=== PATIENT | male | born 1935 | race Caucasian/White ===

== ENCOUNTER 2016-10-05 17:50 | Inpatient (IN) | payer MEDICARE ==
[~2016-10-05] VITALS: Ht 175.3 cm; Wt 73.0 kg
--- NOTE | ~2016-10-05 | DS ---
PATIENT'S NAME: KOLBY RANGEL [facility] AGE: 80 Y [address] ROOM: [place] [address] LOCATION: GPCU ADMIT DATE: 10/05/2016 Discharge Summary DISCHARGE DATE: 10/08/2016 FAMILY PHYSICIAN: Physician, Unknown ATTENDING PHYSICIAN: Hao Cristobal PRIMARY DIAGNOSES: 1. Acute upper gastrointestinal bleed. 2. Duodenal ulcer. 3. Acute blood loss anemia. 4. Acute kidney injury, prerenal etiology. 5. Diabetes mellitus type 2. 6. Elevated troponin. 7. Coronary artery disease. 8. Chronic atrial fibrillation, status post Watchman procedure. 9. Essential hypertension. 10. Benign prostatic hypertrophy. OPERATIONS AND PROCEDURES: EGD was performed by Dr. Dye on 10/06/2016 demonstrating duodenal bulb ulcerations. Hemostatic clips were applied. HISTORY OF PRESENTING ILLNESS/REASON FOR ADMISSION: Please refer to the H and P dictated on 10/05/2016. HOSPITAL COURSE: The patient was admitted to hospital as noted above with a presumptive diagnosis of acute upper GI bleeding. He received aggressive supportive care and close clinical monitoring. Gastroenterology was consulted. EGD was recommended and carried out as described above. Hemoclips were applied without any residual bleeding. His hemoglobin was monitored. He did receive a single unit PRBC transfusion on 10/06/2016. His hemoglobin remained relatively stable, increasing from 7.9 to 8.9. His hemoglobin was 8.5 on the date of discharge. He remained hemodynamically stable over the course of his hospital stay. Perez catheter was pulled on 10/07/2016. He was voiding with only mild urinary hesitancy. It was suggested to follow up with Urology on an outpatient basis. By the end of the 4th day of his hospital stay, it was felt he would be stable enough for discharge to home on PPI therapy and plans for close clinical followup with his primary care provider as well as outpatient followup with Gastroenterology. DISCHARGE INSTRUCTIONS: PATIENT'S NAME: KOLBY RANGEL [facility] AGE: 80 Y [address] ROOM: [place] [address] LOCATION: GPCU ADMIT DATE: 10/05/2016 Discharge Summary DISCHARGE DATE: 10/08/2016 FAMILY PHYSICIAN: Physician, Unknown ATTENDING PHYSICIAN: Hao Cristobal DIET: Cardiac prudent as tolerated. ACTIVITY: As tolerated. MEDICATIONS: 1. Protonix 40 mg p.o. b.i.d. 2. Allopurinol 300 mg p.o. daily. 3. Aspirin 81 mg p.o. daily. 4. Citalopram 40 mg p.o. daily. 5. Lasix 40 mg p.o. daily. 6. Insulin detemir 8 units subcu b.i.d. 7. Actos 15 mg p.o. q.h.s. 8. Simvastatin 20 mg p.o. q.h.s. 9. Acetaminophen 500 mg p.o. q.4 hours p.r.n. pain or fever. 10. Magnesium oxide 400 mg p.o. b.i.d. 11. Glipizide 10 mg p.o. b.i.d. 12. Carvedilol 6.25 mg p.o. b.i.d. 13. Multivitamin daily. 14. Ascorbic acid 1000 mg p.o. q.h.s. 15. Carafate 1 g p.o. b.i.d. FOLLOWUP: He will follow up with his primary care provider, Dr. Otoole, in [place] in 5 to 7 days. He will follow up with Dr. Bennett, Gastroenterology, in 6 weeks for repeat EGD. CONDITION ON DISCHARGE: Fair. TIME SPENT: Total time spent on discharge process 45 minutes. MD ASIA RINALDI/nayan /[id number] d: 10/09/16 0343 t: 10/12/16 0833, DISCHARGE SUMMARY
--- NOTE | ~2016-10-05 | CON ---
PATIENT'S NAME: KOLBY RANGEL [facility] AGE: 80 Y [address] ROOM: [place] [address] LOCATION: GPCU ADMIT DATE: 10/05/2016 Consultation DISCHARGE DATE: FAMILY PHYSICIAN: PHYSICIAN, UNKNOWN ATTENDING PHYSICIAN: DANIA BIGGS REFERRING PHYSICIAN: ANJELICA MANNING MD GASTROENTEROLOGY CONSULTATION HISTORY OF PRESENT ILLNESS: This is an 80-year-old male who was seen in consultation for evaluation of melenic stools. The patient was admitted through the emergency room yesterday with a history of vomiting blood and also passing several episodes of melenic stools on same day in the morning. He has been on anticoagulation for a five- vessel CABG, atrial fibrillation, status post Watchman procedure. The anticoagulant was stopped earlier, and now he is only on aspirin. He has a history of stroke and congestive heart failure, and decompensated with congestive heart failure on arrival, therefore, fluids were given very carefully. On admission, he was tachycardic, but at the time of my evaluation, he was very comfortable in bed. His pulse rate was hovering between 80 and 90. PAST MEDICAL HISTORY: 1. Coronary artery disease with five-vessel CABG. 2. History of CVA. 3. Type 2 diabetes mellitus. 4. Hypertension. 5. Atrial fibrillation, post Watchman procedure. 6. Benign prostatic hypertrophy. 7. Passing melenic stools, but no apparent history of overt GI bleeding in the past. MEDICATIONS: As per MAR. They were reconciled. FAMILY HISTORY: Coronary artery disease. SOCIAL HISTORY: He is a former smoker. However, does not drink or smoke at present. REVIEW OF SYSTEMS: A 10-point review of system is negative other than mentioned above. PHYSICAL EXAMINATION: GENERAL: Reveals a well-developed male, who is not in acute discomfort. VITAL SIGNS: Blood pressure is 140/74, pulse is 92 per minute, respirations 20 PATIENT'S NAME: KOLBY RANGEL [facility] AGE: 80 Y [address] ROOM: [address] [address] LOCATION: GPCU ADMIT DATE: 10/05/2016 Consultation DISCHARGE DATE: FAMILY PHYSICIAN: PHYSICIAN, UNKNOWN ATTENDING PHYSICIAN: KHALID,NAJERA A per minute, and temperature is 98.7 degrees Fahrenheit. Weight is 73 kg. HEAD: Normocephalic and atraumatic. NECK: Supple. No lymphadenopathy. JVP is mildly engorged. CHEST: Clear to palpation, percussion, and auscultation except in the bases which have few crepitations. CARDIAC: Reveals S1 and S2 normal. However, he has irregular heart rate. There are no rubs or added heart sounds. GASTROINTESTINAL: Abdomen in the scaphoid is nontender. There is no hepatosplenomegaly. There is no ascites. GENITOURINARY: Bladder is not full. Hypogastrium is not tender. MUSCULOSKELETAL: Moves all extremities without any restricted joint disease. NEUROLOGICAL: Negative for cranial nerves evaluation, and there was no lateralization. LABORATORY DATA: Shows his hemoglobin is 8.5 g, dropped from 9.8 g on admission. WBC count is 10.5, and platelets are 115,000. Sodium is 141, potassium of 3.7, chloride 1.2, CO2 of 20, glucose 158, calcium 7.8, BUN is 52, and creatinine 1.5. Troponin I is 0.299, and proBNP is 1428. Hemoglobin A1c is 68. ASSESSMENT AND PLAN: Mr. Rangel is an 80-year-old gentleman who had a history of coronary artery bypass grafting in the past, is on aspirin and admitted with melenic stools and vomiting blood. He needs to be further evaluated by upper gastrointestinal endoscopy for evaluation of source of bleeding and treatment. We will go ahead and schedule him for esophagogastroduodenoscopy and proceed appropriately. He has been stabilized in terms of his resuscitation for fluid and electrolytes are concerned, and hemoglobin is stable. He has not had any further melenic stools while in the hospital. We appreciate sharing care of this patient. MD FELISHA CHURCH/nayan /[id number] d: t: 10/07/16 1039, CONSULTATION REPORT
--- NOTE | ~2016-10-05 | HP ---
PATIENT'S NAME: KOLBY RANGEL [facility] AGE: 80 Y [address] ROOM: [place] [address] LOCATION: GPCU ADMIT DATE: 10/05/2016 History & Physical DISCHARGE DATE: FAMILY PHYSICIAN: PHYSICIAN, UNKNOWN ATTENDING PHYSICIAN: DANIA BIGGS DATE OF SERVICE: CHIEF COMPLAINT: Vomiting blood as well as dark tarry stools. HISTORY OF PRESENT ILLNESS: An 80-year-old gentleman with a past medical history significant for coronary artery disease, status post 5-vessel CABG; atrial fibrillation, status post watchman procedure, not on any oral anticoagulation; history of stroke; congestive heart failure, currently compensated, was at home yesterday when he started having bloody emesis multiple times as well as dark tarry stools associated with one episode of chills. He also had abdominal pain which was located in the left upper quadrant associated with it. On further inquire, he said he does not have any headache but does have dizziness and feeling thirsty. He does not complain of any chest pain, any shortness of breath, or constipation. He endorses that he had a prostate procedure done by Dr. Morley 3 weeks ago and he is having difficulty urinating as well. He does not complain of any swelling in legs. Further, he denied any PND, orthopnea, or leg swelling. REVIEW OF SYSTEMS: All other systems reviewed and were negative except what is mentioned in the HPI. PAST MEDICAL HISTORY: 1. Coronary artery disease, status post 5-vessel CABG. 2. Atrial fibrillation status post Watchman procedure. 3. History of CVA. 4. Type 2 diabetes mellitus. 5. Hypertension, essential. 6. Benign prostatic hypertrophy. MEDICATIONS: Medications are being reconciled right now. FAMILY HISTORY: Significant for coronary artery disease in mom as well as dad. SOCIAL HISTORY: PATIENT'S NAME: KOLBY RANGEL [facility] AGE: 80 Y [address] ROOM: [place] [address] LOCATION: GPCU ADMIT DATE: 10/05/2016 History & Physical DISCHARGE DATE: FAMILY PHYSICIAN: PHYSICIAN, UNKNOWN ATTENDING PHYSICIAN: DANIA BIGGS Quit smoking long time ago. No alcohol or drug abuse. Lives with his at home. PHYSICAL EXAMINATION: VITAL SIGNS: Blood pressure is 166/76, 110, afebrile, 17. GENERAL: No acute distress. Alert and oriented x3. HEENT: Head: Atraumatic, normocephalic. Eyes: Nonicteric. No pallor. Oropharynx: Dry mucous membranes. CARDIOVASCULAR: Variable S1, S2. No murmurs, gallops, or rubs. LUNGS: Clear to auscultation bilaterally. ABDOMEN: Soft. Bowel sounds are present. Nontender. EXTREMITIES: No clubbing, cyanosis, or edema. PSYCH: Normal affect, mood, and speech. NEURO: Cranial nerves 2 through 12 intact. No motor or sensory deficit noted. MUSCULOSKELETAL: No muscle tenderness or joint swelling noted. ENDOCRINE: No thyromegaly or cushingoid features noted. LYMPHATICS: No lymphangitis or lymphadenopathy appreciated. LABORATORY DATA AND X-RAYS: EKG was done in our facility which showed paced ventricular rhythm with occasional premature ventricular contraction. Underlying rhythm appears to be sinus. Lab work from outside hospital initially showed hemoglobin of 11 which dripped down to 9 and then 7.2 this morning. He was transfused 2 units of blood and was sent here. Lab on presentation to our hospital included lactate of 3.4, white count of 10, hemoglobin of 9.8, platelets 132, BUN 64, creatinine 1.8, sodium 137, potassium 3.8, lactic acid, of note, is 3.4. ASSESSMENT: 1. Acute blood loss anemia. 2. Likely upper gastrointestinal bleeding. 3. Heart failure with preserved ejection fraction compensated likely acute cystitis. 4. Acute kidney injury. 5. Type 2 diabetes mellitus. 6. History of cerebrovascular accident. 7. Essential hypertension. PLAN: Like mentioned above, he was admitted to the outside hospital yesterday and his hemoglobin did drop from 11 to 9 and subsequently to 7. He is status post 2 packed red blood cells transfusion and transferred here for further care. At this point, we are going to obtain 2 IV accesses. We will start Protonix drip. His chest x-ray at outside facilities clear and does not have any signs of heart failure so we will continue the resuscitation. He did receive 40 of PATIENT'S NAME: KOLBY RANGEL [facility] AGE: 80 Y [address] ROOM: [place] [address] [facility] ADMIT DATE: 10/05/2016 History & Physical DISCHARGE DATE: FAMILY PHYSICIAN: PHYSICIAN, UNKNOWN ATTENDING PHYSICIAN: DANIA BIGGS outside facility between 2 units of packed red blood cells. We are going to type and screen. GI consultation have been obtained and Dr. Casarez is going to monitor this patient. Tonight, we are going to monitor hemodynamics and hemoglobin. If he has further episodes of dark tarry stools or emesis in consultation with Gastroenterology we will consider endoscopy. We will monitor the creatinine as well as bilateral kidney ultrasound tomorrow. A Perez had been placed. He does state that he has burning on urination, so I am going to give him one dose of Rocephin now until the lab work for urinalysis for evaluation of acute cystitis is available. No chemical prophylaxis, just SCDs n.p.o. for now. Fall precautions. MD RAMY GARAZ/josettel /[id number] D: [id number] T: [id number] HISTORY & PHYSICAL
[2016-10-05 20:00] LABS: BASOPHIL % 0.2 %; EOSINOPHIL # 0.1 K/uL (0.0-0.5); EOSINOPHIL % 0.6 %; HEMOGLOBIN 9.8 g/dL (11.0-16.0); IMMATURE GRANULOCYTE # 0.1 K/uL (0.0-0.3); LYMPHOCYTE # 3.1 K/uL (0.8-4.0); LYMPHOCYTE % 29.5 %; MCV 91.5 fl (83.0-98.0); MONOCYTE # 0.6 K/uL (0.0-1.0); MONOCYTE % 5.3 %; MPV 10.6 fl (9.4-12.4); NEUTROPHIL # (ANC) 6.6 K/uL (1.4-9.0); NEUTROPHIL % 63.4 %; NRBC % 0 /100WBC (0-0.00); PLATELET COUNT 132 K/uL (150-450); RBC 3.06 M/uL (3.50-5.50); RDW-CV 17.2 % (11.9-14.6); WBC 10.4 K/uL (4.0-11.0)
[2016-10-05] MEDS ORDERED: ZYLOPRIM300 MG PO (20:10)
[2016-10-05 20:15] LABS: ANION GAP 13.8 (10.0-19.0); CALCIUM 8.5 mg/dL (8.5-10.5); CREATININE 1.8 mg/dL (0.6-1.3); POTASSIUM 3.8 mMol/L (3.7-5.1)
[2016-10-05 20:40] LABS: BILIRUBIN URINE NEGATIVE (NEGATIVE); BLOOD URINE NEGATIVE /UL (NEGATIVE); COLOR URINE COLORLESS (YELLOW); GLUCOSE URINE NEGATIVE (NEGATIVE); KETONE URINE NEGATIVE (NEGATIVE); LEUKOCYTES URINE NEGATIVE /UL (NEGATIVE); NITRITE URINE NEGATIVE (NEGATIVE); PROTEIN URINE NEGATIVE (NEGATIVE); TURBIDITY URINE CLEAR (CLEAR); UROBILINOGEN URINE NORMAL (NORMAL)
[2016-10-05] MEDS ORDERED: ASPIRIN LO-DOSE81 MG PO (21:47)
[2016-10-05] MEDS ORDERED: ZOCOR20 MG PO (21:48)
[2016-10-05] MEDS ORDERED: TYLENOL EXTRA500 MG PO (21:48)
[2016-10-05] MEDS ORDERED: CELEXA40 MG PO (21:49)
[2016-10-05] MEDS ORDERED: MOBIC7.5 MG PO (21:49)
[2016-10-05] MEDS ORDERED: GLUCOTROL10 MG PO (21:50)
[2016-10-05] MEDS ORDERED: MAG-OX-400(241400 MG PO (21:50)
[2016-10-05] MEDS ORDERED: LASIX40 MG PO (21:50)
[2016-10-05] MEDS ORDERED: COREG6.25 MG PO (21:51)
[2016-10-05] MEDS ORDERED: ACTOS 15 MG15 MG PO (21:52)
[2016-10-05] MEDS ORDERED: LEVEMIR FL100 UNIT/1 SUB-Q (21:53)
[2016-10-05] MEDS ORDERED: MULTIPLE VITAM1 EACH PO (21:54)
[2016-10-05] MEDS ORDERED: C-10001000 MG PO (21:55)
[2016-10-05] MEDS ORDERED: CARAFATE1 GM PO (21:56)
[2016-10-05 23:07] LABS: HEMATOCRIT 25.9 % (33.0-50.0); HEMOGLOBIN 8.9 g/dL (11.0-16.0)
[2016-10-06 02:17] LABS: HEMATOCRIT 23.6 % (33.0-50.0); HEMOGLOBIN 8.4 g/dL (11.0-16.0)
[2016-10-06 05:38] LABS: BASOPHIL % 0.3 %; EOSINOPHIL # 0.2 K/uL (0.0-0.5); EOSINOPHIL % 1.4 %; HEMATOCRIT 23.8 % (33.0-50.0); HEMOGLOBIN 8.5 g/dL (11.0-16.0); IMMATURE GRANULOCYTE # 0.1 K/uL (0.0-0.3); IMMATURE GRANULOCYTE % 0.7 %; LYMPHOCYTE # 3.2 K/uL (0.8-4.0); LYMPHOCYTE % 30.1 %; MCH 32.6 pg (27.0-34.0); MCHC 35.7 gm/dL (32.0-36.5); MCV 91.2 fl (83.0-98.0); MONOCYTE # 0.5 K/uL (0.0-1.0); NEUTROPHIL # (ANC) 6.6 K/uL (1.4-9.0); NEUTROPHIL % 62.5 %; NRBC % 0 /100WBC (0-0.00); PLATELET COUNT 115 K/uL (150-450); RBC 2.61 M/uL (3.50-5.50); RDW-CV 17.7 % (11.9-14.6); WBC 10.5 K/uL (4.0-11.0)
[2016-10-06 06:02] LABS: ANION GAP 12.7 (10.0-19.0); CALCIUM 7.8 mg/dL (8.5-10.5); CREATININE 1.5 mg/dL (0.6-1.3); POTASSIUM 3.7 mMol/L (3.7-5.1)
--- NOTE | 2016-10-06 06:58 | NUR ---
Patient went into [place] ER on 10/04/16 with complaints of abdominal pain, syncopal episode, and bloody stools. Patient was transfered to [facility] on 10/05/16. Patient received 2units PRBC in [place] before transfer. Upon arrival, patient complained of abdominal pain only upon palpation, especially to left upper quadrant. Vitals: HR 98. RR 20. BP 166/85. Temp 98.0. O2 100% RA. HX of AFIB, HTN, CAD, Type 2 Diabetes, Pacemaker (placed 5 years ago). Patient not reliable historian. at bedside-does better than patient. stated patient did fall on Friday09/30/16 but did not fall with syncopal episode. 1 PIV to left wrist present upon admission. Dr. Cristobal admitting.
--- NOTE | 2016-10-06 07:07 | NUR ---
Significant Event: Patient alert and oriented x3. Vital signs stable. On RA. Complains of shortness of breath. O2 >95% this shift. Patient complains of pain to left upper quadrant with palpation, no pain otherwise. Left wrist PIV infiltrate. Protonix gtt running at 10 to left forearm PIV. Lactated Ringers running at 75 to right forearm PIV. Perez catheter placed with 700ml uop. Patient NPO since arrival. On bedrest. 1 smear BM this shift-brown/black in color. consulted last night. Pro-BNP and Troponin elevated. Hemaglobin dropped since admission. notified of all. at bedside. Patient calm and cooperative with all cares. Follow up: EGD this morning. Will continue to monitor per plan of care.
[2016-10-06 10:55] LABS: HEMATOCRIT 22.5 % (33.0-50.0)
[2016-10-06 10:59] LABS: HEMOGLOBIN 7.9 g/dL (11.0-16.0)
[2016-10-06 16:12] LABS: HEMATOCRIT 26.1 % (33.0-50.0); HEMOGLOBIN 8.9 g/dL (11.0-16.0)
--- NOTE | 2016-10-06 17:02 | NUR ---
PATIENT TO ENDO THIS AM FOR EGD. PATIENT STATED HAD NO C/O PAIN THIS SHIFT. GAVE 1 UNIT OF PRBC'S. PATIENT ATE SMALL AMOUNT OF LUNCH, TOLERATED WELL. D/C'D IV FLUIDS. EKG COMPLETED. AT BEDSIDE, ASSISTS WITH CARES.
[2016-10-07 04:10] LABS: HEMATOCRIT 25.3 % (33.0-50.0); HEMOGLOBIN 8.9 g/dL (11.0-16.0)
--- NOTE | 2016-10-07 04:27 | NUR ---
Significant Event: Patient alert and oriented x3. SBP 111-142. HR 80s-90s. All other vital signs stable. On RA. No complaints of pain or SOB. No BM. Protonix gtt continues to right forearm PIV at 10mg/hr. 675ml uop this shift. Up with 1 assist in room. Patient tolerating food well, accuchecks changed to ACHS. 325 at HS. 6 units given per sliding scale. continues at bedside. Patient calm and cooperative with all cares. Follow up: Continue to monitor per plan of care.
--- NOTE | 2016-10-07 11:34 | NUR ---
1125 Introduced self and CM role to Roge and his , Linda, who was at bedside. Roge tells me that he lives at home in [place], [place] with his and he plans on returning there when medically cleared to do so. Linda tells me that she helps manage his medications at home. She gets them filled at either [facility] in [place], [place] or at [facility]. Paco' PCP is Dr.Hillary Otoole at [facility] in [place], [place]. He states that he is seen by her on a regular basis. Roge denies any need for HHC or DME upon dismissal. Alberto tells me that he doesn't use any DME at baseline and is able to do his own ADLs. Denies the need for any DME at this time. No other questions, needs or concerns. CM name and contact information was left on his whiteboard incase any other questions or concerns should come up during his stay here. CM to continue to follow and assist.
--- NOTE | 2016-10-07 19:10 | NUR ---
Significant Event: Alert & oriented. SBP 120-160, HR 70-90, afebrile, room air. Tolerating regulard diet, no BM today. Protonix gtt changed to PO. Follow up: Remove clay?
[2016-10-08 04:23] LABS: BASOPHIL % 0.4 %; EOSINOPHIL # 0.3 K/uL (0.0-0.5); HEMATOCRIT 24.7 % (33.0-50.0); HEMOGLOBIN 8.5 g/dL (11.0-16.0); IMMATURE GRANULOCYTE # 0.1 K/uL (0.0-0.3); IMMATURE GRANULOCYTE % 0.7 %; LYMPHOCYTE # 2.1 K/uL (0.8-4.0); LYMPHOCYTE % 25.2 %; MCH 31.8 pg (27.0-34.0); MCHC 34.4 gm/dL (32.0-36.5); MCV 92.5 fl (83.0-98.0); MONOCYTE # 0.5 K/uL (0.0-1.0); MONOCYTE % 5.5 %; NEUTROPHIL # (ANC) 5.4 K/uL (1.4-9.0); NEUTROPHIL % 64.2 %; NRBC % 0 /100WBC (0-0.00); PLATELET COUNT 110 K/uL (150-450); RBC 2.67 M/uL (3.50-5.50); RDW-CV 16.9 % (11.9-14.6); WBC 8.4 K/uL (4.0-11.0)
[2016-10-08 04:36] LABS: ALBUMIN 2.8 gm/dL (3.5-5.0); ANION GAP 9.8 (10.0-19.0); CALCIUM 8.2 mg/dL (8.5-10.5); CREATININE 1.3 mg/dL (0.6-1.3); PHOSPHORUS 3.3 mg/dL (2.5-4.9); POTASSIUM 3.8 mMol/L (3.7-5.1)
--- NOTE | 2016-10-08 05:09 | NUR ---
Significant Event: A/O x3. Afebrile. Denies pain. VSS on RA. SBP 150-160s. Had 1 black, tarry stool, no bleeding. HGB 8.5 this am. Removed clay. cooperative with cares. Follow up: Possible discharge today.
[2016-10-08] MEDS ORDERED: PROTONIX40 MG PO (09:47)
--- NOTE | 2016-10-08 15:07 | NUR ---
PT DISCHARGE INSTRUCTIONS GIVEN TO PT AND FAMILY. VERBALIZED UNDERSTANDING OF. IV'S D/C'D PER DISCHARGE. DENIES PAIN. A/O. DISCHARGED PER WHEELCHAIR BY AIDE TO FRONT DOOR WITH FAMILY.
[2016-10-08 16:29] LABS: BILIRUBIN URINE NEGATIVE (NEGATIVE); BLOOD URINE 10 /UL (NEGATIVE); COLOR URINE YELLOW (YELLOW); GLUCOSE URINE NEGATIVE (NEGATIVE); KETONE URINE NEGATIVE (NEGATIVE); LEUKOCYTES URINE 25 /UL (NEGATIVE); NITRITE URINE NEGATIVE (NEGATIVE); PROTEIN URINE NEGATIVE (NEGATIVE); TURBIDITY URINE CLEAR (CLEAR); UROBILINOGEN URINE NORMAL (NORMAL)
[2016-10-08 16:40] LABS: EPITHELIAL URINE 0-2 #/HPF (NEGATIVE)
[2016-10-08 16:43] LABS: BACTERIA URINE FEW (NEGATIVE)
[2016-10-08 16:48] LABS: HYALINE CAST URINE 0-2 #/LPF (NEGATIVE)
[2016-11-12] MEDS ORDERED: FLOMAX0.4 MG PO (14:39)
== END 2016-10-08 15:05 | disposition disaster alternative care site (69) | DRG 378 ==
LOC: GPCU 19:12
PROVIDERS: Family Medicine; Internal Medicine; Urology; ADMIT Internal Medicine
PROC: 30233N1 Transfusion of Nonautologous Red Blood Cells into Peripheral Vein, Percutaneous Approach (ICD-10-PCS; principal; 2016-10-06)
PROC: 0W3P8ZZ Control Bleeding in Gastrointestinal Tract, Via Natural or Artificial Opening Endoscopic (ICD-10-PCS; principal; 2016-10-06)
DX: K92.1 Melena (principal); D62 Acute posthemorrhagic anemia; N17.9 Acute kidney failure, unspecified; E11.65 Type 2 diabetes mellitus with hyperglycemia; N30.00 Acute cystitis without hematuria; I11.0 Hypertensive heart disease with heart failure; I50.32 Chronic diastolic (congestive) heart failure; K26.9 Duodenal ulcer, unspecified as acute or chronic, without hemorrhage or perforation; I25.10 Atherosclerotic heart disease of native coronary artery without angina pectoris; N40.0 Benign prostatic hyperplasia without lower urinary tract symptoms; I48.2 Chronic atrial fibrillation; Z87.891 Personal history of nicotine dependence; Z95.1 Presence of aortocoronary bypass graft; Z86.73 Personal history of transient ischemic attack (TIA), and cerebral infarction without residual deficits
CPT/HCPCS: C9113; J0696; J2001; J2405; J7030; J7040; J7050; J7120; P9016

== ENCOUNTER → 2016-11-19 | Day surgery (SDC) | payer MEDICARE ==
[~2016-11-19] VITALS: Ht 177.8 cm; Wt 75.9 kg
[~2016-11-19] MED LIST: ACTOS 15 MG15 MG PO; ASPIRIN LO-DOSE81 MG PO; C-10001000 MG PO; CARAFATE1 GM PO; CELEXA40 MG PO; COREG6.25 MG PO; FLOMAX0.4 MG PO; GLUCOTROL10 MG PO; LASIX40 MG PO; LEVEMIR FL100 UNIT/1 SUB-Q; MAG-OX-400(241400 MG PO; MOBIC7.5 MG PO; MULTIPLE VITAM1 EACH PO; PROTONIX40 MG PO; TYLENOL EXTRA500 MG PO; ZOCOR20 MG PO; ZYLOPRIM300 MG PO
== END ==
LOC: GPOC 11-12 11:00 → GEND 06:57
PROC: 0DB68ZX Excision of Stomach, Via Natural or Artificial Opening Endoscopic, Diagnostic (ICD-10-PCS; principal; 2016-11-19)
DX: K29.50 Unspecified chronic gastritis without bleeding (principal); K25.9 Gastric ulcer, unspecified as acute or chronic, without hemorrhage or perforation; K44.9 Diaphragmatic hernia without obstruction or gangrene; I25.10 Atherosclerotic heart disease of native coronary artery without angina pectoris; E78.00 Pure hypercholesterolemia, unspecified; G47.33 Obstructive sleep apnea (adult) (pediatric); I13.0 Hypertensive heart and chronic kidney disease with heart failure and stage 1 through stage 4 chronic kidney disease, or unspecified chronic kidney disease; E11.22 Type 2 diabetes mellitus with diabetic chronic kidney disease; N18.2 Chronic kidney disease, stage 2 (mild); I50.9 Heart failure, unspecified; N40.0 Benign prostatic hyperplasia without lower urinary tract symptoms; G43.909 Migraine, unspecified, not intractable, without status migrainosus; M19.90 Unspecified osteoarthritis, unspecified site; F32.9 Major depressive disorder, single episode, unspecified; D63.1 Anemia in chronic kidney disease; Z86.73 Personal history of transient ischemic attack (TIA), and cerebral infarction without residual deficits; Z79.82 Long term (current) use of aspirin; Z79.899 Other long term (current) drug therapy; Z79.4 Long term (current) use of insulin
CPT/HCPCS: J2001; J7030